=== PATIENT | male | born 1965 | race Caucasian/White ===

== ENCOUNTER 2017-05-22 10:54 | Emergency (ER) | payer BC ==
[~2017-05-22] VITALS: Ht 185.4 cm; Wt 114.5 kg
[2017-05-22] MEDS ORDERED: NORCO 5/3251 TABLET PO (13:35)
[2017-05-22 13:46] VITALS: BP 138/98
== END 2017-05-22 13:56 | disposition home or self-care (01) ==
LOC: EME 10:54
DX: S76.811A Strain of other specified muscles, fascia and tendons at thigh level, right thigh, initial encounter (principal); W01.0XXA Fall on same level from slipping, tripping and stumbling without subsequent striking against object, initial encounter; Y93.89 Activity, other specified; Z72.0 Tobacco use
CPT/HCPCS: 99281; 99284